=== PATIENT | male | born 1975 | race Caucasian/White ===

== ENCOUNTER 2021-11-13 07:45 | Day surgery (SDC) | payer OTHER ==
[~2021-11-13] VITALS: Ht 185.4 cm; Wt 103.9 kg
[~2021-11-13 07:45] MED LIST: AMPDEX30CR PO; LEVSOD75 PO; Lamictal200 MG PO; Lisinopril-Hct1 EAC4 PO; OMEP20ER PO; ZYRTEC10 M4 PO
== END 2021-11-13 10:03 | disposition home or self-care (01) ==
LOC: ORSCSDS 07:45
PROVIDERS: Student in an Organized Health Care Education/Training Program
PROC: 0DB58ZX Excision of Esophagus, Via Natural or Artificial Opening Endoscopic, Diagnostic (ICD-10-PCS; principal; 2021-11-13 09:00)
PROC: 0D758ZZ Dilation of Esophagus, Via Natural or Artificial Opening Endoscopic (ICD-10-PCS; principal; 2021-11-13 09:00)
PROC: 0DB98ZX Excision of Duodenum, Via Natural or Artificial Opening Endoscopic, Diagnostic (ICD-10-PCS; principal; 2021-11-13 09:00)
DX: R13.10 Dysphagia, unspecified (principal); K21.00 Gastro-esophageal reflux disease with esophagitis, without bleeding; K22.70 Barrett's esophagus without dysplasia; K22.2 Esophageal obstruction; K44.9 Diaphragmatic hernia without obstruction or gangrene; K29.80 Duodenitis without bleeding; Z79.899 Other long term (current) drug therapy
CPT/HCPCS: 88305; C1726; J2250; J2704; J7120

== ENCOUNTER → 2022-11-30 | Outpatient (CLI) | payer OTHER ==
[2022-11-30 13:51] LABS: Hematocrit 49.7 % (37.0-53.0); Hemoglobin 16.2 g/dL (13.5-17.5); Mean Corpuscular HGB 27.6 pg (26.0-34.0); Mean Corpuscular HGB Conc 32.6 g/dL (31.5-36.5); Mean Corpuscular Volume 85 fL (80-100); Mean Platelet Volume 9.2 fL (9.1-12.4); Platelet Count 355 K/mm3 (150-400); RDW Coefficient Variation 15.2 % (11.7-14.2); RDW Standard Deviation 46.9 fL (35.1-46.3); Red Blood Cell Count 5.88 M/mm3 (4.30-5.90); White Blood Cell Count 9.02 K/mm3 (4.00-11.30)
== END | disposition home or self-care (01) ==
LOC: LAB SHORT 13:05 → LAB 13:05
PROVIDERS: Nurse Practitioner
DX: D75.1 Secondary polycythemia (principal)
CPT/HCPCS: 85027

== ENCOUNTER 2025-01-15 13:01 | Day surgery (SDC) | payer OTHER ==
[~2025-01-15] VITALS: Ht 188 cm; Wt 113.9 kg
[~2025-01-15 13:01] MED LIST changes: +FAMO20 PO
[2025-01-15] MEDS ORDERED: LOSA25 PO (13:35)
[2025-01-15] MEDS ORDERED: DEPO-TESTO200 MG/1 M (13:39)
[2025-01-15] MEDS ORDERED: Benzocaine Oral Spray 0.5ML UD ONE (14:52)
--- NOTE | 2025-01-15 16:31 | NUR ---
01/15/25 [id number] Ramila Zurita CONFIRMED AND REVIEWED H&P, MEDCICATIONS, ALLERGIES, MEDICAL HISTORY, RESPIRATORY HISTORY, VITAL SIGNS, 3-LEAD EKG, CONSENTS, AND PHYSICIAN ORDERS. PATIENT CONFIRMS NPO STATUS AND AGREES WITH SCHEDULED PROCEDURE. MONITOR INTACT WITH CONTINUOUS PULSE OXIMETRY, CAPNOGRAPHY, 3-LEAD EKG, INTERMITTENT BP. SUPPLEMENTAL O2 TO BE TITRATED THROUGHOUT PROCEDURE TO MAINTAIN O2 SATURATION ABOVE 90%. PATIENT DETERMINED TO BE ASA APPROPRIATE FOR PROPOFOL SEDATION PRIOR TO START OF PROCEDURE BY . MALLAMPATI CLASS 3 AIRWAY: VISUALIZATION OF ONLY THE BASE OF THE UVULA.
[2025-01-15] MEDS ORDERED: Midazolam HCl 1MG / ML 2ML Vial ONE (16:40)
[2025-01-15 17:30] VITALS: BP 137/101
--- NOTE | 2025-01-15 17:40 | NUR ---
PT GIVEN DISCHARGE INSTRUCTIONS,IV DCD CATH INTACT, PT DENIED ANY QUESTIONS TAKING PO FLUIDS WELL UP AMBULATORY IN SDS WITH OUT PROBLEMS
== END 2025-01-15 23:00 | disposition home or self-care (01) ==
LOC: ORSCSDS 13:01 → ORSCMMR 13:01 → ORSCSDS 14:15 → ORSCMMR 14:30 → ORSCSDS 14:45 → ORSCMMR 23:00
PROVIDERS: Internal Medicine Gastroenterology
PROC: 0D758ZZ Dilation of Esophagus, Via Natural or Artificial Opening Endoscopic (ICD-10-PCS; principal; 2025-01-15 15:00)
PROC: 0DB58ZX Excision of Esophagus, Via Natural or Artificial Opening Endoscopic, Diagnostic (ICD-10-PCS; principal; 2025-01-15 15:00)
DX: K22.70 Barrett's esophagus without dysplasia (principal); R13.14 Dysphagia, pharyngoesophageal phase; K21.9 Gastro-esophageal reflux disease without esophagitis; K22.2 Esophageal obstruction; K44.9 Diaphragmatic hernia without obstruction or gangrene; D50.9 Iron deficiency anemia, unspecified; E05.90 Thyrotoxicosis, unspecified without thyrotoxic crisis or storm; Z79.899 Other long term (current) drug therapy
CPT/HCPCS: 88305; A9270; C1726; J2250; J2704; J7120